=== PATIENT | male | born 1945 | race Caucasian/White ===

== ENCOUNTER → 2017-01-10 | Outpatient (CLI) | payer MEDICARE, OTHER | LOC: HEART 5 13:22 | DX: I51.7 Cardiomegaly (principal) ==

== ENCOUNTER → 2022-04-12 | Outpatient (CLI) | payer MEDICARE ==
[~2022-04-12] MED LIST: KAPSPARGO SPRIN50 MG PO; NEURONTIN300 MG PO; NORCO 7.5-3251 EACH PO; NORVASC5 MG PO
== END ==
LOC: HEART 5 09:40
DX: R60.0 Localized edema (principal); I10 Essential (primary) hypertension; R06.02 Shortness of breath; I27.20 Pulmonary hypertension, unspecified
CPT/HCPCS: 93306